=== PATIENT | female | born 1990 | race African-American/Black ===

== ENCOUNTER 2023-10-17 13:41 | Emergency (ER) | payer OTHER ==
[~2023-10-17] VITALS: Ht 152.4 cm; Wt 77.1 kg
[2023-10-17] MEDS ORDERED: KETOROLAC TROMETHAMINE 30 MG VIAL IM STA (15:05)
[2023-10-17] MEDS ORDERED: DEXAMETHASONE SODIUM PHOSPHATE 4 MG/ML VIAL IM STA (15:05)
[2023-10-17] MEDS ORDERED: DEXAMETHASONE SODIUM PHOSPHATE 4 MG/ML VIAL ONE (16:10)
[2023-10-17] MEDS ORDERED: KETOROLAC TROMETHAMINE 30 MG VIAL ONE (16:10)
[2023-10-17] MEDS ORDERED: KETO10TA2 PO (18:12)
== END 2023-10-17 19:02 | disposition home or self-care (01) ==
LOC: ER 13:42
DX: M25.572 Pain in left ankle and joints of left foot (principal); W05.1XXA Fall from non-moving nonmotorized scooter, initial encounter; Y93.I9 Activity, other involving external motion; Y92.413 State road as the place of occurrence of the external cause